=== PATIENT | female | born 1985 | race Two or more races ===

== ENCOUNTER 2024-09-25 12:57 | Inpatient (IN) | payer MEDICAID, OTHER ==
[~2024-09-25] VITALS: Ht 170.2 cm; Wt 79.6 kg
--- NOTE | 2024-09-25 13:23 | ED.PDOC ---
History of Present Illness HPI Comments This is a 38-year-old female without significant any past medical history and past surgical history of cholecystectomy, presented to the ED with a chief complaint of left pelvic pain and nausea since 5:00 p.m. yesterday prior to this visit. Patient states that abdominal pain started yesterday 5:00 p.m. which was diffuse to the right lower abdomen, 8/10, associated with nausea and chills. Her last menstrual period was 2 months ago and she is currently on Depo shot. Denies chest pain, shortness of breath, vomiting, dysuria, hematuria or any altered bowel habit. 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 Family History Family History: Reviewed,noncontributory to illness, Family hx of DM Social History Smoker: Non-Smoker Alcohol: Denies ETOH Use Drugs: Denies Drug Use Lives In: Home Constitutional: reports: chills; denies: diaphoresis, fatigue, fever, malaise, sweats, weakness, others EENTM: denies: blurred vision, double vision, ear bleeding, ear discharge, ear drainage, ear pain, ear ringing, eye pain, eye redness, hearing loss, mouth pain, mouth swelling, nasal discharge, nose bleeding, nose congestion, nose pain, photophobia, tearing, throat pain, throat swelling, voice changes, others Respiratory: denies: cough, hemoptysis, orthopnea, SOB at rest, shortness of breath, SOB with excertion, stridor, wheezing, others Cardiovascular: denies: chest pain, dizzy spells, diaphoresis, Dyspnea on exertion, edema, irregular heart beat, left arm pain, lightheadedness, palpitations, PND, syncope, others Gastrointestinal: reports: abdominal pain, nausea; denies: abdomen distended, blood streaked bowels, constipated, diarrhea, dysphagia, difficulty swallowing, hematemesis, melena, poor appetite, poor fluid intake, rectal bleeding, rectal pain, vomiting, others Genitourinary: denies: abnormal vagina bleeding, burning, dyspareunia, dysuria, flank pain, frequency, hematuria, incontinence, pain, , vagina discharge, urgency, others Neurological: denies: dizziness, fainting, headache, left sided numbness, left sided weakness, numbness, paresthesia, pre-existing deficit, right sided numbness, right sided weakness, seizure, speech problems, tingling, tremors, weakness, others Musculoskeletal: denies: back pain, gout, joint pain, joint swelling, muscle pain, muscle stiffness, neck pain, others Integumetry: denies: bruises, change in color, change in hair/nails, dryness, laceration, lesions, lumps, rash, wounds, others Allergic/Immunocompromised: denies: Difficulty Healing, Frequent Infections, Hives, Itching, others Hematologic/Lymphatic: denies: anemia, blood clots, easy bleeding, easy bruising, swollen glands, others Endocrine: denies: excessive hunger, excessive sweating, excessive thirst, excessive urination, flushing, intolerance to cold, intolerance to heat, unexplained weight gain, unexplained weight loss, others Psychiatric: denies: anxiety, bipolar disorder, depression, hopeless, panic disorder, schizophrenia, sleepless, suicidal, others Physical Exam General Appearance: Mild Distress HEENT: Normal ENT Inspection, Pharynx Normal, TMs Normal Neck: Full Range of Motion, Non-Tender, Normal, Normal Inspection Respiratory: Chest Non-Tender, Lungs Clear, No Accessory Muscle Use, No Respiratory Distress, Normal Breath Sounds Cardiovascular: No Edema, No JVD, No Murmur, No Gallop, Normal Peripheral Pulses, Regular Rate/Rhythm Breast Exam: Deferred Gastrointestinal: LLQ, No Organomegaly, No Pulsatile Mass, Normal Bowel Sounds, Tenderness Genitalia: Deferred Pelvic: Deferred Rectal: Deferred Extremities: No calf tenderness, Normal capillary refill, Normal inspection, Normal range of motion, Non-tender, No pedal edema Neurologic: NOT DONE Cerebellar Function: NOT DONE Reflexes: NOT DONE Skin: NOT DONE Peripheral Pulses: 2+ carotid (R), 2+ carotid (L), 2+ femoral (R), 2+ femoral (L), 2+ dorsalis pedis (R), 2+ dorsalis pedis (L), 2+ Radial (R), 2+ Radial (L), 2+ Brachial (R), 2+ Brachial (L) Lymphatic: NOT DONE Was a procedure done? Was a procedure done?: No Differential Dx Considerations may include: Ovarian cyst, UTI, cystitis, acute diverticulitis, colitis, PID X-Ray, Labs, Meds, VS Vital Signs Date Time Temp Pulse Resp B/P (MAP) Pulse Ox O2 Delivery O2 Flow Rate FiO2 09/25/24 14:51 91 18 113/76 (88) 99 09/25/24 12:58 97.4 96 15 132/89 100 97.4 Lab Test 09/25/24 13:26 09/25/24 13:21 Range/Units White Blood Count 10.4 4.4-10.8 10^3/uL Red Blood Count 4.94 4.0-5.20 10^6/uL Hemoglobin 11.9 L 12.2-16.2 g/dL Hematocrit 35.8 L 36.0-46.0 % Mean Corpuscular Volume 72.4 L 80.0-100.0 fL Mean Corpuscular Hemoglobin 24.0 L 28.0-32.0 pg Mean Corpuscular Hemoglobin Concent 33.2 32.0-36.0 g/dL Red Cell Distribution Width 15.5 H 11.8-14.3 % Platelet Count 288 140-450 10^3/uL Mean Platelet Volume 8.4 6.9-10.8 fL Neutrophils (%) (Auto) 81.1 H 37.0-80.0 % Lymphocytes (%) (Auto) 13.5 10.0-50.0 % Monocytes (%) (Auto) 4.9 0.0-12.0 % Eosinophils (%) (Auto) 0.3 0.0-7.0 % Basophils (%) (Auto) 0.2 0.0-2.0 % Neutrophils # (Auto) 8.4 1.6-8.6 10 ^3/uL Lymphocytes # (Auto) 1.4 0.4-5.4 10 ^3/uL Monocytes # (Auto) 0.5 0-1.3 10 ^3/uL Eosinophils # (Auto) 0 0-0.8 10 ^3/uL Basophils # (Auto) 0 0-0.2 10 ^3/uL Nucleated Red Blood Cells 0.0 % Sodium Level 137 136-145 mmol/L Potassium Level 3.9 3.5-5.1 mmol/L Chloride Level 103 98-107 mmol/L Carbon Dioxide Level 25 20-31 mmol/L Anion Gap 9 5-15 Blood Urea Nitrogen 7 L 9-23 mg/dL Creatinine 0.64 0.550-1.02 mg/dL Glomerular Filtration Rate Calc 115 >90 mL/min BUN/Creatinine Ratio 10.9 10.0-20.0 Serum Glucose 295 H 74-106 mg/dL Lactic Acid Level 1.3 0.4-2.0 mmol/L Calcium Level 9.1 8.7-10.4 mg/dL Magnesium Level 1.9 1.6-2.6 mg/dL Lipase 32 12-53 U/L Beta HCG, Quantitative 0.8 L 1.5-4.2 mIU/mL Urine Color Colorless Yellow Urine Clarity Clear Clear Urine pH 6.5 5.0-9.0 Urine Specific [place] 1.009 1.001-1.035 Urine Protein Negative Negative Urine Ketones 1+ H Negative Urine Blood 3+ H Negative /uL Urine Nitrite Negative Negative Urine Bilirubin Negative Negative Urine Urobilinogen Normal Negative mg/dL Urine Leukocyte Esterase Trace Negative /uL Urine RBC 65 0 - 4 /hpf Urine Microscopic WBC 6 H 0-5 /HPF Urine Squamous Epithelial Cells Few <5 /hpf Urine Bacteria Few H None Seen /hpf Urine Glucose 4+ H Normal mg/dL This is a 38 years old female with no significant past medical history presented to the ED with severe left pelvic pain and on examination revealed tenderness in the left pelvic region. CT of the abdomen pelvis with IV contrast demonstrated multiple left ovarian cyst with hydrosalpinx and ultrasound of the pelvis demonstrated enlarged uterus, 2.2 multiplied 2.7 cm heterogeneous left ovarian mass. Consulted on-call OBGYN Dr. Fischer. X-Ray, Labs, Meds, VS Comment INDICATION: Severe left pelvic pain EXAM DATE: 09/25/2024 02:20 PM COMPARISON: None RADIATION DOSE: CTDIvol: 11 mGy, DLP: 667 mGy*cm PROCEDURE: Helical CT images were obtained of the abdomen and pelvis with IV contrast Sagittal and coronal reconstructions are provided. ORAL CONTRAST: None. ADDITIONAL IMAGES / REFORMATS: None All CT scans at this medical facility are performed using dose modulation techniques as appropriate to a performed exam including the following: Automated exposure control was utilized; adjustment of the MA and/or KV according to patient size; and use of iterative reconstruction technique. FINDINGS: LUNG BASE: Normal. LIVER: Normal. GALLBLADDER AND BILIARY TREE: Hilda clips. No intra- or extrahepatic biliary ductal dilation. PANCREAS: Normal. SPLEEN: Normal. BOWEL: Normal. Normal appendix. ADRENALS: Normal. KIDNEYS AND URETER: Normal. BLADDER: Normal. REPRODUCTIVE ORGANS: Moderate size tubular structure in the left adnexa could be multiple ovarian cysts or a hydrosalpinx. Consider pelvis US for further evaluation. LYMPH NODES:No lymphadenopathy. PERITONEUM: No ascites or free air. No other fluid collection. VESSELS: Scattered atherosclerotic calcifications are noted. RETROPERITONEUM: Normal. ABDOMINAL WALL: Normal. BONES: Scattered osseous degenerative changes are noted. IMPRESSION: Moderate size tubular structure in the left adnexa could be multiple ovarian cysts or a hydrosalpinx. Consider pelvis US for further evaluation. INDICATION: ovarian cyst TECHNIQUE: Multiple real-time grayscale transabdominal sonographic images along with color and duplex Doppler of the uterus and ovaries were obtained. COMPARISON: None FINDINGS: The uterus measures 8.9 x 6.1 x 6.3 cm. The endometrial stripe measures 0.11 cm. The right ovary measures 2.6 x 2.6 x 2 cm. The left ovary measures 6.2 x 4.5 x 5.6 cm. There is a 2.8 x 2.5 x 2.7 cm mixed mass in the left ovary. Subsequent color and duplex Doppler interrogation of the ovaries demonstrated symmetric vascular flow to both ovaries, though this does not exclude the possibility of torsion due to the dual blood supply. IMPRESSION: 1. 8.9 x 6.3 cm uterus 2. Endometrium measures 11 mm 3. Enlarged left ovary with 2.8 x 2.7 cm heterogeneous mass. Doppler signal is normal from the left ovary. Images Reviewed?: Images reviewed and evaluated by me Time of 1ST Reevaluation: 17:00 Reevaluation 1ST: Improved Patient Education/Counseling: Diagnosis, Treatment Family Education/Counseling: No Family Present SEPSIS Sepsis Screen Date sepsis recognized/suspect: Sep 25, 2024 Time Sepsis recognized/suspect: 9 Recent Procedure: No On Antibiotic Therapy: No Respiratory Rate >20: No Heart Rate >90: Yes Temp<36 C (96.8 F) or >38.3 C: No SBP <90 or MAP <65 mmHG: No New Acute Mental Status Change: No Is the patient on CPAP, BIPAP,: No Physician Orders Ct Ab Pel With Iv Con Only (09/25/24 13:11) Pelvic (09/25/24 15:07) Transvaginal Us Non Ob (09/25/24 ) * 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 (09/25/24 17:01) Vital Signs Date Time Temp Pulse Resp B/P (MAP) Pulse Ox O2 Delivery O2 Flow Rate FiO2 09/25/24 14:51 91 18 113/76 (88) 99 09/25/24 12:58 97.4 96 15 132/89 100 97.4 Laboratory Tests Test 09/25/24 13:26 Lactic Acid Level 1.3 mmol/L (0.4-2.0) White Blood Count 10.4 10^3/uL (4.4-10.8) Departure 1 Departure Time of Disposition: 17:11 Impression: Primary Impression: Left ovarian cyst Additional Impression: Hydrosalpinx Disposition: 30 STILL A PATIENT Admit to: Med Surg Condition: Guarded Critical Care Note Critical Care Time?: No Stability Stability form required: ANGELICA Gray RESIDENT Sep 25, 2024 13:23
[2024-09-25 13:53] LABS: Hematocrit 35.8 % (36.0-46.0); Hemoglobin 11.9 g/dL (12.2-16.2); Mean Corpuscular Hemoglobin 24.0 pg (28.0-32.0); Mean Corpuscular Volume 72.4 fL (80.0-100.0); Nucleated Red Blood Cells % 0.0 %
[2024-09-25 14:03] LABS: Chloride 103 mmol/L (98-107); Potassium 3.9 mmol/L (3.5-5.1); Sodium 137 mmol/L (136-145)
[2024-09-25 14:04] LABS: Anion Gap 9 (5-15); Calcium 9.1 mg/dL (8.7-10.4); Carbon Dioxide 25 mmol/L (20-31)
[2024-09-25 14:09] LABS: BUN/Creatinine Ratio 10.9 (10.0-20.0); Lipase 32 U/L (12-53)
[2024-09-25 14:10] LABS: Blood Urea Nitrogen 7 mg/dL (9-23); Glucose 295 mg/dL (74-106); Magnesium 1.9 mg/dL (1.6-2.6)
[2024-09-25] MEDS: IOHEXOL 300 MG/ML 100ML BOTTLE IJ ONE (14:27)
--- NOTE | 2024-09-25 14:55 | DVH ---
CT CT AB PEL WITH IV CON ONLY INDICATION: Severe left pelvic pain EXAM DATE: 09/25/2024 02:20 PM COMPARISON: None RADIATION DOSE: CTDIvol: 11 mGy, DLP: 667 mGy*cm PROCEDURE: Helical CT images were obtained of the abdomen and pelvis with IV contrast Sagittal and co tres reconstructions are provided. ORAL CONTRAST: None. ADDITIONAL IMAGES / REFORMATS: None All CT s cans at this medical facility are performed using dose modulation techniques as appropriate to a perf ormed exam including the following: Automated exposure control was utilized; adjustment of the MA and /or KV according to patient size; and use of iterative reconstruction technique. FINDINGS: LUNG BASE: Normal. LIVER: Normal. GALLBLADDER AND BILIARY TREE: Hilda clips. No intra- or extrahepatic biliary ductal dilation. PANCREAS: Normal. SPLEEN: Normal. BOWEL: Normal. Normal appendix. ADRENALS: Normal. KIDNEYS AND URETER: Normal. BLADDER: Normal. REPRODUCTIVE ORGANS: Moderate size tubular structure in the left adnexa could be multiple ovarian cys ts or a hydrosalpinx. Consider pelvis US for further evaluation. LYMPH NODES:No lymphadenopathy. PERITONEUM: No ascites or free air. No other fluid collection. VESSELS: Scattered atherosclerotic calcifications are noted. RETROPERITONEUM: Normal. ABDOMINAL WALL: Normal. BONES: Scattered osseous degenerative changes are noted. IMPRESSION: Moderate size tubular structure in the left adnexa could be multiple ovarian cysts or a hydrosalpinx. Consider pelvis US for further evaluation.
[2024-09-25 14:58] LABS: Urine Protein, UAD Negative (Negative)
--- NOTE | 2024-09-25 16:44 | DVH ---
INDICATION: ovarian cyst TECHNIQUE: Multiple real-time grayscale transabdominal sonographic images along with color and duplex Doppler of the uterus and ovaries were obtained. COMPARISON: None FINDINGS: The uterus measures 8.9 x 6.1 x 6.3 cm. The endometrial stripe measures 0.11 cm. The right ovary measures 2.6 x 2.6 x 2 cm. The left ovary measures 6.2 x 4.5 x 5.6 cm. There is a 2.8 x 2.5 x 2.7 cm mixed mass in the left ovar y. Subsequent color and duplex Doppler interrogation of the ovaries demonstrated symmetric vascular flow to both ovaries, though this does not exclude the possibility of torsion due to the dual blood suppl y. IMPRESSION: 1. 8.9 x 6.3 cm uterus 2. Endometrium measures 11 mm 3. Enlarged left ovary with 2.8 x 2.7 cm heterogeneous mass. Doppler signal is normal from the left ovary.
[2024-09-25] MEDS: MORPHINE SULFATE INJ 2 MG/ml SYRG IV ONE (17:19)
[2024-09-25] MEDS: cefTRIAXone 1GM/50ML D5W 50 ML IV ONE (18:13)
[2024-09-25] MEDS ORDERED: ONDANSETRON HCL 4 MG/2 ML VIAL IV PRN (19:45)
[2024-09-25] MEDS ORDERED: TEMAZEPAM 15 MG CAP PO PRN (19:45)
[2024-09-25] MEDS ORDERED: HYDROcodone-ACET 5/325MG TAB PO PRN (19:45)
--- NOTE | 2024-09-25 22:03 | DVHHP2 ---
History of Present Illness Reason for Visit: Abdominal pain History of Present Illness 38-year-old female presents for evaluation of abdominal pain. Patient endorses a two day history of left pelvic/groin pain. Reports some nausea and chills. No other acute complaints reported. Past Medical History Denies Past Surgical History Cholecystectomy and Family History Noncontributory Smoke: No ALCOHOL: none Drugs: None Lives: with Family Review of Systems Review of Systems Review of systems are currently negative otherwise addressed in HPI. Allergies: Coded Allergies: NO KNOWN ALLERGIES (Unverified , 09/25/24) Medications Current Medications Medications Dose Ordered Sig/Yessi Route Start Time Stop Time Status Last Admin Dose Admin Acetaminophen/ Hydrocodone Bitart 1 tab Q4HP PRN PO 09/25/24 19:45 Temazepam 15 mg QHSP PRN PO 09/25/24 19:45 Ondansetron HCl 4 mg Q4HP PRN IV 09/25/24 19:45 Acetaminophen 650 mg Q6HP PRN PO 09/25/24 19:45 Exam Vital Signs Vital Signs Date Time Temp Pulse Resp B/P (MAP) Pulse Ox O2 Delivery O2 Flow Rate FiO2 09/25/24 17:49 82 14 118/82 09/25/24 17:25 Room Air* 0 21 09/25/24 17:25 98.0 99 98.0 Exam Gen: 38-year-old female in mild distress. Skin: Warm, dry, normal color and texture, no rash. HEENT: Normocephalic atraumatic, mucous membranes moist and pink. Neck: Cervical and supraclavicular nodes normal without enlargement, trachea is midline, thyroid gland is normal without masses. Pulmonary: Clear to auscultation and percussion bilaterally. Cardiac: Regular rate and rhythm. No murmur Abdomen: Soft, nontender, nondistended, bowel sounds present all 4 quadrants, no guarding, no rigidity, no organomegaly. Extremities: No cyanosis, clubbing, no edema Neuro: Cranial nerves II through XII grossly intact, normal affect and speech, no focal motor deficits. Labs/Xrays ORDERING PHYSICIAN: ANGELICA GALLARDO RESIDENT PROCEDURE(s): ABPLIV - CT AB PEL WITH IV CON ONLY REASON: Severe left pelvic pain ORDER NUMBER(s): [id number], ACCESSION NUMBER(s): [id number] CT CT AB PEL WITH IV CON ONLY INDICATION: Severe left pelvic pain EXAM DATE: 09/25/2024 02:20 PM COMPARISON: None RADIATION DOSE: CTDIvol: 11 mGy, DLP: 667 mGy*cm PROCEDURE: Helical CT images were obtained of the abdomen and pelvis with IV contrast Sagittal and coronal reconstructions are provided. ORAL CONTRAST: None. ADDITIONAL IMAGES / REFORMATS: None All CT scans at this medical facility are performed using dose modulation techniques as appropriate to a performed exam including the following: Automated exposure control was utilized; adjustment of the MA and/or KV according to patient size; and use of iterative reconstruction technique. FINDINGS: LUNG BASE: Normal. LIVER: Normal. GALLBLADDER AND BILIARY TREE: Hilda clips. No intra- or extrahepatic biliary ductal dilation. PANCREAS: Normal. SPLEEN: Normal. BOWEL: Normal. Normal appendix. ADRENALS: Normal. KIDNEYS AND URETER: Normal. BLADDER: Normal. REPRODUCTIVE ORGANS: Moderate size tubular structure in the left adnexa could be multiple ovarian cysts or a hydrosalpinx. Consider pelvis US for further evaluation. LYMPH NODES:No lymphadenopathy. PERITONEUM: No ascites or free air. No other fluid collection. VESSELS: Scattered atherosclerotic calcifications are noted. RETROPERITONEUM: Normal. ABDOMINAL WALL: Normal. BONES: Scattered osseous degenerative changes are noted. IMPRESSION: Moderate size tubular structure in the left adnexa could be multiple ovarian cysts or a hydrosalpinx. Consider pelvis US for further evaluation. ATED BY: GETACHEW BORGES MD ORDERING PHYSICIAN: ANGELICA GALLARDO RESIDENT PROCEDURE(s): PELUS - PELVIC REASON: ovarian cyst ORDER NUMBER(s): [id number], ACCESSION NUMBER(s): [id number] INDICATION: ovarian cyst TECHNIQUE: Multiple real-time grayscale transabdominal sonographic images along with color and duplex Doppler of the uterus and ovaries were obtained. COMPARISON: None FINDINGS: The uterus measures 8.9 x 6.1 x 6.3 cm. The endometrial stripe measures 0.11 cm. The right ovary measures 2.6 x 2.6 x 2 cm. The left ovary measures 6.2 x 4.5 x 5.6 cm. There is a 2.8 x 2.5 x 2.7 cm mixed mass in the left ovary. Subsequent color and duplex Doppler interrogation of the ovaries demonstrated symmetric vascular flow to both ovaries, though this does not exclude the possibility of torsion due to the dual blood supply. IMPRESSION: 1. 8.9 x 6.3 cm uterus 2. Endometrium measures 11 mm 3. Enlarged left ovary with 2.8 x 2.7 cm heterogeneous mass. Doppler signal is normal from the left ovary. Labs Test 09/25/24 13:26 09/25/24 13:21 Range/Units White Blood Count 10.4 4.4-10.8 10^3/uL Red Blood Count 4.94 4.0-5.20 10^6/uL Hemoglobin 11.9 L 12.2-16.2 g/dL Hematocrit 35.8 L 36.0-46.0 % Mean Corpuscular Volume 72.4 L 80.0-100.0 fL Mean Corpuscular Hemoglobin 24.0 L 28.0-32.0 pg Mean Corpuscular Hemoglobin Concent 33.2 32.0-36.0 g/dL Red Cell Distribution Width 15.5 H 11.8-14.3 % Platelet Count 288 140-450 10^3/uL Mean Platelet Volume 8.4 6.9-10.8 fL Neutrophils (%) (Auto) 81.1 H 37.0-80.0 % Lymphocytes (%) (Auto) 13.5 10.0-50.0 % Monocytes (%) (Auto) 4.9 0.0-12.0 % Eosinophils (%) (Auto) 0.3 0.0-7.0 % Basophils (%) (Auto) 0.2 0.0-2.0 % Neutrophils # (Auto) 8.4 1.6-8.6 10 ^3/uL Lymphocytes # (Auto) 1.4 0.4-5.4 10 ^3/uL Monocytes # (Auto) 0.5 0-1.3 10 ^3/uL Eosinophils # (Auto) 0 0-0.8 10 ^3/uL Basophils # (Auto) 0 0-0.2 10 ^3/uL Nucleated Red Blood Cells 0.0 % Sodium Level 137 136-145 mmol/L Potassium Level 3.9 3.5-5.1 mmol/L Chloride Level 103 98-107 mmol/L Carbon Dioxide Level 25 20-31 mmol/L Anion Gap 9 5-15 Blood Urea Nitrogen 7 L 9-23 mg/dL Creatinine 0.64 0.550-1.02 mg/dL Glomerular Filtration Rate Calc 115 >90 mL/min BUN/Creatinine Ratio 10.9 10.0-20.0 Serum Glucose 295 H 74-106 mg/dL Lactic Acid Level 1.3 0.4-2.0 mmol/L Calcium Level 9.1 8.7-10.4 mg/dL Magnesium Level 1.9 1.6-2.6 mg/dL Lipase 32 12-53 U/L Beta HCG, Quantitative 0.8 L 1.5-4.2 mIU/mL Urine Color Colorless Yellow Urine Clarity Clear Clear Urine pH 6.5 5.0-9.0 Urine Specific [place] 1.009 1.001-1.035 Urine Protein Negative Negative Urine Ketones 1+ H Negative Urine Blood 3+ H Negative /uL Urine Nitrite Negative Negative Urine Bilirubin Negative Negative Urine Urobilinogen Normal Negative mg/dL Urine Leukocyte Esterase Trace Negative /uL Urine RBC 65 0 - 4 /hpf Urine Microscopic WBC 6 H 0-5 /HPF Urine Squamous Epithelial Cells Few <5 /hpf Urine Bacteria Few H None Seen /hpf Urine Glucose 4+ H Normal mg/dL SEPSIS Sepsis Screen Date sepsis recognized/suspect: Sep 25, 2024 Time Sepsis recognized/suspect: 1259 Recent Procedure: No On Antibiotic Therapy: No Respiratory Rate >20: No Heart Rate >90: Yes Temp<36 C (96.8 F) or >38.3 C: No SBP <90 or MAP <65 mmHG: No New Acute Mental Status Change: No Is the patient on CPAP, BIPAP,: No Physician Orders Pelvic (09/25/24 15:07) Transvaginal Us Non Ob (09/25/24 ) * [facility] Consultation (09/25/24 17:01) Regular Diet (09/26/24 Breakfast) Basic Metabolic Panel (09/26/24 04:00) Admit (09/25/24 19:31) Hydrocodone-Acet 5/325mg Tab ([place] 32 (09/25/24 19:45) Temazepam (Restoril) (09/25/24 19:45) Ondansetron Hcl (Zofran) (09/25/24 19:45) Condition: Stable (09/25/24 19:31) Acetaminophen Tablet (Tylenol Tablet) (09/25/24 19:45) Bedrest With Bathroom Privileg (09/25/24 19:31) Vital Signs Date Time Temp Pulse Resp B/P (MAP) Pulse Ox O2 Delivery O2 Flow Rate FiO2 09/25/24 17:49 82 14 118/82 09/25/24 17:25 Room Air* 0 21 09/25/24 17:25 98.0 82 14 118/82 (94) 99 98.0 09/25/24 17:19 82 14 118/82 09/25/24 14:51 91 18 113/76 (88) 99 Laboratory Tests Test 09/25/24 13:26 Lactic Acid Level 1.3 mmol/L (0.4-2.0) White Blood Count 10.4 10^3/uL (4.4-10.8) Medications Medications Dose Ordered Sig/Yessi Route Start Time Stop Time Status Last Admin Dose Admin Ceftriaxone Sodium 50 ml @ 100 mls/hr ONCE ONCE IV 09/25/24 17:15 09/25/24 17:44 DC 09/25/24 18:13 100 MLS/HR Morphine Sulfate 2 mg ONCE ONCE IV 09/25/24 13:15 09/25/24 13:16 DC 09/25/24 17:19 2 MG Assessment/Plan Assessment/Plan Assessment Left ovarian mass Plan Admit the patient to [facility] to the hospitalist Pain management OBGYN consult pending Continue treatment per orders. Plan discussed with: Patient My Orders Orders - PHILIP GALARZA AGACNP Procedure Category Date Status Time Regular Diet DIET 09/26/24 Transmitted Breakfast Basic Metabolic Panel LAB 09/26/24 Verified 04:00 Admit ADMIT 09/25/24 Transmitted 19:31 Hydrocodone-Acet PHA 09/25/24 In Process 5/325mg Tab ([place] 19:45 Temazepam (Restoril) PHA 09/25/24 In Process 19:45 Ondansetron Hcl PHA 09/25/24 In Process (Zofran) 19:45 Condition: Stable [place] 09/25/24 In Process 19:31 Acetaminophen Tablet PHA 09/25/24 In Process (Tylenol Tablet) 19:45 Bedrest With Bathroom [place] 09/25/24 In Process Privileg 19:31 Date of Service: Sep 25, 2024 Billing Provider: PHILIP GALARZA Common Visit Codes: [id number] INP/OBS CARE (MOD) PHILIP GALARZA Sep 25, 2024 22:03
[2024-09-25 23:43] VITALS: BP 123/82; PULSE 94; RESP 18; TEMP 98.5; O2SAT 97
[2024-09-26] VITALS (7 sets, daily range): BP systolic 121–139; BP diastolic 73–90; PULSE 77–87; RESP 16–20; TEMP 97.7–99.2; O2SAT 93–99
[2024-09-26 07:21] LABS: Chloride 106 mmol/L (98-107); Potassium 3.9 mmol/L (3.5-5.1); Sodium 138 mmol/L (136-145)
[2024-09-26 07:22] LABS: Anion Gap 9 (5-15); Carbon Dioxide 23 mmol/L (20-31)
[2024-09-26 07:27] LABS: BUN/Creatinine Ratio 9.7 (10.0-20.0); Blood Urea Nitrogen 7 mg/dL (9-23); Calcium 8.4 mg/dL (8.7-10.4); Glucose 273 mg/dL (74-106)
[2024-09-26] MEDS ORDERED: DEXTROSE (50%) 50ML SYRG IV PRN (12:00)
[2024-09-26] MEDS ORDERED: KETOROLAC TROMETH 30 MG/ML 1ML VIAL IV PRN (12:00)
--- NOTE | 2024-09-26 12:01 | DVHPN2 ---
Progress Note Date Seen: Sep 26, 2024 Medical Necessity Reason Pt with a Central, PICC or Fol: No Subjective Patient reports: No new complaints Review of Systems: HEENT:Normal, CVS:Normal, RESPIRATORY:Normal, GI:Normal, :Normal, MSK:Normal, NEURO:Normal Objective vital signs Vital Sign Date Time Temp Pulse Resp B/P (MAP) Pulse Ox O2 Delivery O2 Flow Rate FiO2 09/26/24 09:00 98.3 77 17 129/88 (102) 93 98.3 09/26/24 08:00 Room Air* 0 21 Total Intake and Output 09/25/24 09/25/24 09/26/24 15:00 23:00 07:00 Intake Total 50 ml 1000 ml Balance 50 ml 1000 ml medications Current Medications Medications Dose Ordered Sig/Yessi Route Start Time Stop Time Status Last Admin Dose Admin Acetaminophen/ Hydrocodone Bitart 1 tab Q4HP PRN PO 09/25/24 19:45 Temazepam 15 mg QHSP PRN PO 09/25/24 19:45 Ondansetron HCl 4 mg Q4HP PRN IV 09/25/24 19:45 Acetaminophen 650 mg Q6HP PRN PO 09/25/24 19:45 Examination: GENERAL:Normal, HEENT:Normal, NECK:Normal, LUNGS:Normal, CVS:Normal, ABDOMEN:Normal, MSK:Normal, SKIN:Normal, NEURO:Normal, :Normal laboratory and microbiology Laboratory Tests 09/26/24 06:12 09/25/24 13:26 Test 09/26/24 06:12 Range/Units Serum Glucose 273 H 74-106 mg/dL Problem List/Assessment/Plan Problem List/Assessment/Plan #1 abd pain with left ovarian cysts ?rupture: pain meds, key operator consult #2 ?dm: A1c, ssi Plan discussed with: Patient Date of Service: Sep 26, 2024 Billing Provider: PHILIP NULL MD Common Visit Codes: [id number] INP/OBS CARE(HIGH) PHILIP NULL MD Sep 26, 2024 12:01
--- NOTE | 2024-09-26 12:41 | DVHINCON2 ---
Date of service: Sep 26, 2024 Referring Physician hospitalist Reason for Consultation pelvic pain,ovarian mass History of Present Illness pt is admitted for acute abd pain,left sided pain currently not severe . pt denies having dysmenorrhea or dyspaurina.[facility] she has some spotting with it started 2 days ago.ct reveals questionable hydrosalpinx ,pelvic sono shows 2.8cm maa of left ovary. uterus size is nl . Past Medical History na Past Surgical History cs x3,cholecystectomy Family History na Social History 3 cs,pap 06/16 nl Patient Family History: Diabetes mellitus G8 MOTHER Ischemic heart disease G8 FATHER Allergies: Coded Allergies: NO KNOWN ALLERGIES (Unverified , 09/25/24) Current Medications Current Medications Medications (Trade) Dose Ordered Sig/Yessi Route PRN Reason Start Time Stop Time Status Last Admin Acetaminophen/ Hydrocodone Bitart (Arnett 5/325MG Tab) 1 tab Q4HP PRN PO MODERATE PAIN (4-6 PAIN SCALE) 09/25/24 19:45 Temazepam (Restoril) 15 mg QHSP PRN PO FOR INSOMNIA 09/25/24 19:45 Ondansetron HCl (Zofran) 4 mg Q4HP PRN IV NAUSEA / VOMITING 09/25/24 19:45 Acetaminophen (Tylenol Tablet) 650 mg Q6HP PRN PO PAIN SCALE 1-3 OR TEMP>100.4 09/25/24 19:45 Diagnostic Test (Pha) (Accu-Chek Comfort Curve T) 1 strip ACHS 09/26/24 17:00 UNV Insulin Human Regular (InsuLIN R) ACHS SC 09/26/24 17:00 UNV Dextrose 50 ml UD PRN IV Blood Sugar LESS THAN 60 09/26/24 12:00 UNV Ketorolac Tromethamine (Toradol Injection) 15 mg Q6HPRN PRN IV SEVERE PAIN (7-10 PAIN SCALE) 09/26/24 12:00 10/01/24 11:59 UNV Review of Systems Constitutional: no fever, chill, weight loss HEENT: no eye pain, no hearing loss, no oral lesion, no scleral icterus Heart: no chest pain, no chest pressure Lung: no cough, no dyspnea with exertion Abdomen: lower abd pain : no pain with urination, normal appearing urine.left lower quad pain Musculoskeletal: no joint pain, no muscle pain Neurological: no seizure, no loss of sensation, no weakness in extremities Pysch: no depression, no anxiety Derm: no rash, no jaundice Vital Signs Vital Signs Date Time Temp Pulse Resp B/P (MAP) Pulse Ox O2 Delivery O2 Flow Rate FiO2 09/26/24 09:00 98.3 77 17 129/88 (102) 93 98.3 09/26/24 08:00 Room Air* 0 21 Physical Exam alert and orinented ,in no acute distress HEENT:nl NECK:nl CARDIAC:rrr PULMONARY:cta ABDOMEN:soft ,no rigidity,no rebound pelvic -ext genitalia nl,cx nl ,no cervical motion tenderness,uterus nt and nl size,left adenxa tenderness noted no palpable mass noted Labs/Diagnostic Data Labs Test 09/26/24 06:12 09/25/24 13:26 09/25/24 13:21 Range/Units Sodium Level 138 136-145 mmol/L Potassium Level 3.9 3.5-5.1 mmol/L Chloride Level 106 98-107 mmol/L Carbon Dioxide Level 23 20-31 mmol/L Anion Gap 9 5-15 Blood Urea Nitrogen 7 L 9-23 mg/dL Creatinine 0.72 0.550-1.02 mg/dL Glomerular Filtration Rate Calc 109 >90 mL/min BUN/Creatinine Ratio 9.7 L 10.0-20.0 Serum Glucose 273 H 74-106 mg/dL Calcium Level 8.4 L 8.7-10.4 mg/dL White Blood Count 10.4 4.4-10.8 10^3/uL Red Blood Count 4.94 4.0-5.20 10^6/uL Hemoglobin 11.9 L 12.2-16.2 g/dL Hematocrit 35.8 L 36.0-46.0 % Mean Corpuscular Volume 72.4 L 80.0-100.0 fL Mean Corpuscular Hemoglobin 24.0 L 28.0-32.0 pg Mean Corpuscular Hemoglobin Concent 33.2 32.0-36.0 g/dL Red Cell Distribution Width 15.5 H 11.8-14.3 % Platelet Count 288 140-450 10^3/uL Mean Platelet Volume 8.4 6.9-10.8 fL Neutrophils (%) (Auto) 81.1 H 37.0-80.0 % Lymphocytes (%) (Auto) 13.5 10.0-50.0 % Monocytes (%) (Auto) 4.9 0.0-12.0 % Eosinophils (%) (Auto) 0.3 0.0-7.0 % Basophils (%) (Auto) 0.2 0.0-2.0 % Neutrophils # (Auto) 8.4 1.6-8.6 10 ^3/uL Lymphocytes # (Auto) 1.4 0.4-5.4 10 ^3/uL Monocytes # (Auto) 0.5 0-1.3 10 ^3/uL Eosinophils # (Auto) 0 0-0.8 10 ^3/uL Basophils # (Auto) 0 0-0.2 10 ^3/uL Nucleated Red Blood Cells 0.0 % Lactic Acid Level 1.3 0.4-2.0 mmol/L Magnesium Level 1.9 1.6-2.6 mg/dL Lipase 32 12-53 U/L Beta HCG, Quantitative 0.8 L 1.5-4.2 mIU/mL Urine Color Colorless Yellow Urine Clarity Clear Clear Urine pH 6.5 5.0-9.0 Urine Specific [place] 1.009 1.001-1.035 Urine Protein Negative Negative Urine Ketones 1+ H Negative Urine Blood 3+ H Negative /uL Urine Nitrite Negative Negative Urine Bilirubin Negative Negative Urine Urobilinogen Normal Negative mg/dL Urine Leukocyte Esterase Trace Negative /uL Urine RBC 65 0 - 4 /hpf Urine Microscopic WBC 6 H 0-5 /HPF Urine Squamous Epithelial Cells Few <5 /hpf Urine Bacteria Few H None Seen /hpf Urine Glucose 4+ H Normal mg/dL Primary Diagnosis abd pain/pelvic pain left ovarian cyst possible corpus luteum cyst Plan supportive care ,hydration and pain management repeat us in 6-8 weeks fu 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
[2024-09-26] MEDS: ACETAMINOPHEN 325 MG TAB PO PRN (14:38)
[2024-09-26] MEDS: ACCU-CHEK COMFORT CURVE STRIP VI SCH (17:00)
[2024-09-26] MEDS: InsuLIN REG 1unit/0.01ml Soln (100units/ml) SC SCH (17:45)
[2024-09-27 01:00] VITALS: BP 113/70; PULSE 87; RESP 18; TEMP 97.8; O2SAT 99
[2024-09-27 05:00] VITALS: BP 110/75; PULSE 80; RESP 16; TEMP 97.8; O2SAT 94
[2024-09-27 07:45] VITALS: PULSE 80; RESP 17; O2SAT 99
[2024-09-27 07:45] LABS: Hematocrit 35.4 % (36.0-46.0); Hemoglobin 11.6 g/dL (12.2-16.2); Mean Corpuscular Hemoglobin 23.9 pg (28.0-32.0); Mean Corpuscular Volume 72.8 fL (80.0-100.0); Nucleated Red Blood Cells % 0.1 %
--- NOTE | 2024-09-27 08:07 | DVHPN2 ---
Chief Complaints Patient reports: No new complaints, Feels better, Other (pt is pain free) Objective Vitals Vital Signs Date Time Temp Pulse Resp B/P (MAP) Pulse Ox O2 Delivery O2 Flow Rate FiO2 09/27/24 07:45 80 17 99 Room Air* 0 21 09/27/24 05:00 97.8 110/75 (87) 97.8 Medications Current Medications Medications (Trade) Dose Ordered Sig/Yessi Route PRN Reason Start Time Stop Time Status Last Admin Dextrose 50 ml UD PRN IV Blood Sugar LESS THAN 60 09/26/24 12:00 Diagnostic Test (Pha) (Accu-Chek Comfort Curve T) 1 strip ACHS 09/26/24 17:00 09/27/24 06:30 Insulin Human Regular (InsuLIN R) ACHS SC 09/26/24 17:00 09/27/24 06:31 Ketorolac Tromethamine (Toradol Injection) 15 mg Q6HPRN PRN IV SEVERE PAIN (7-10 PAIN SCALE) 09/26/24 12:00 10/01/24 11:59 Abdominal: Soft, Non tender Studies Laboratory Tests 09/27/24 06:38 Test 09/27/24 06:38 Range/Units Serum Glucose Pending Ass/Plan Assessment pelvic pain resoved l Plan pt was given instruction to fu out pt with our car seat coverer office for pap and fu sono will sign off thank you for your request of our participation Visit Coding OBGYN Date of Service: Sep 27, 2024 Billing Provider: LUCINA ESPINO DO DIRECTOR [employer] Common Visit Codes: [id number] INP/OBS CARE(HIGH) LUCINA ESPINO DO Sep 27, 2024 08:07
[2024-09-27 08:08] LABS: Chloride 101 mmol/L (98-107); Potassium 4.0 mmol/L (3.5-5.1); Sodium 137 mmol/L (136-145)
[2024-09-27 08:09] LABS: Anion Gap 9 (5-15); Calcium 9.3 mg/dL (8.7-10.4); Carbon Dioxide 27 mmol/L (20-31)
[2024-09-27 08:14] LABS: BUN/Creatinine Ratio 10.5 (10.0-20.0); Blood Urea Nitrogen 8 mg/dL (9-23); Glucose 265 mg/dL (74-106)
--- NOTE | 2024-09-27 11:11 | DVHDS2 ---
Discharge Summary Date of Admission Sep 25, 2024 at 19:31 Date of Discharge: Sep 27, 2024 Labs/Diagnostic Data: Laboratory Results Test 09/27/24 06:38 09/27/24 06:27 09/26/24 06:12 09/25/24 13:26 White Blood Count 7.6 10^3/uL (4.4-10.8) Red Blood Count 4.86 10^6/uL (4.0-5.20) Hemoglobin 11.6 g/dL (12.2-16.2) Hematocrit 35.4 % (36.0-46.0) Mean Corpuscular Volume 72.8 fL (80.0-100.0) Mean Corpuscular Hemoglobin 23.9 pg (28.0-32.0) Mean Corpuscular Hemoglobin Concent 32.9 g/dL (32.0-36.0) Red Cell Distribution Width 15.6 % (11.8-14.3) Platelet Count 282 10^3/uL (140-450) Mean Platelet Volume 8.6 fL (6.9-10.8) Neutrophils (%) (Auto) 70.1 % (37.0-80.0) Lymphocytes (%) (Auto) 22.6 % (10.0-50.0) Monocytes (%) (Auto) 6.2 % (0.0-12.0) Eosinophils (%) (Auto) 0.8 % (0.0-7.0) Basophils (%) (Auto) 0.3 % (0.0-2.0) Neutrophils # (Auto) 5.4 10 ^3/uL (1.6-8.6) Lymphocytes # (Auto) 1.7 10 ^3/uL (0.4-5.4) Monocytes # (Auto) 0.5 10 ^3/uL (0-1.3) Eosinophils # (Auto) 0.1 10 ^3/uL (0-0.8) Basophils # (Auto) 0 10 ^3/uL (0-0.2) Nucleated Red Blood Cells 0.1 % Sodium Level 137 mmol/L (136-145) Potassium Level 4.0 mmol/L (3.5-5.1) Chloride Level 101 mmol/L (98-107) Carbon Dioxide Level 27 mmol/L (20-31) Anion Gap 9 (5-15) Blood Urea Nitrogen 8 mg/dL (9-23) Creatinine 0.76 mg/dL (0.550-1.02) Glomerular Filtration Rate Calc 102 mL/min (>90) BUN/Creatinine Ratio 10.5 (10.0-20.0) Serum Glucose 265 mg/dL (74-106) Calcium Level 9.3 mg/dL (8.7-10.4) POC Glucose 245 mg/dl (70-106) Hemoglobin A1c 10.8 % A1C (<5.7) Lactic Acid Level 1.3 mmol/L (0.4-2.0) Magnesium Level 1.9 mg/dL (1.6-2.6) Lipase 32 U/L (12-53) Beta HCG, Quantitative 0.8 mIU/mL (1.5-4.2) Test 09/25/24 13:21 Urine Color Colorless (Yellow) Urine Clarity Clear (Clear) Urine pH 6.5 (5.0-9.0) Urine Specific [place] 1.009 (1.001-1.035) Urine Protein Negative (Negative) Urine Ketones 1+ (Negative) Urine Blood 3+ /uL (Negative) Urine Nitrite Negative (Negative) Urine Bilirubin Negative (Negative) Urine Urobilinogen Normal mg/dL (Negative) Urine Leukocyte Esterase Trace /uL (Negative) Urine RBC 65 /hpf (0 - 4) Urine Microscopic WBC 6 /HPF (0-5) Urine Squamous Epithelial Cells Few /hpf (<5) Urine Bacteria Few /hpf (None Seen) Urine Glucose 4+ mg/dL (Normal) Other Laboratory Tests 09/27/24 06:38 Brief Hx & Hospital Course: see dictated note Condition at Discharge: Good Final Diagnosis/Problems List diabetes Discharge Disposition: Home Discharge Instruct/Medications Diet: Cardiac 2g Na,low cholest Activity: No Restrictions, As Tolerated Follow Up/Referral: fu with pcp in 1 wk Medications: script to pharmacy Discharge Statement: "Patient was advised to return to the ER or call 911 if any headaches, dizziness, shortness of breath, chest pain, abdominal pain, bleeding, fevers, or worsening of medical condition. Patient was counseled about treatment plan, medications, possible side effects, patientverbalized understanding. All questions were answered to the best of my ability. This discharge took greater then 30 minutes in planning, reviewing documentation, counseling the patient, and discussing with other team members." ASSESSMENT ASSESSMENT Assessment diabetes Date of Service: Sep 27, 2024 Billing Provider: PHILIP NULL MD Common Visit Codes: [id number] DISCH DAY >30min PHILIP NULL MD Sep 27, 2024 11:11
[2024-09-27] MEDS ORDERED: INSU1INJ19 SC (11:12)
[2024-09-27] MEDS ORDERED: METF-370 PO (11:12)
--- NOTE | 2024-09-27 11:22 | DVHDS ---
HISTORY OF PRESENT ILLNESS: The patient is a 38-year-old lady who came with complaints of left-sided pelvic and groin pain. HOSPITAL COURSE: The patient had a CT of abdomen and pelvis that showed evidence of tubular structure in the left adnexa with what appeared to be multiple ovarian cysts. The patient had a pelvic ultrasound that showed enlarged left ovary. She was seen in CHILD NUTRITION ASSISTANT consult by Dr. Ramos and was recommended to follow up with her in the clinic. The patient was also noted to have diabetes mellitus, which was new onset. Her hemoglobin A1c was 10.8. Her beta hCG was negative. The patient will now be discharged to be on metformin 500 mg b.i.d., Basaglar 20 units at bedtime and she will be given a glucometer with glucose strips and lancets. The patient will be set up with a primary care in discharge clinic. She will also be set up for diabetic education. FINAL DIAGNOSES: * Left-sided ovarian cyst with abdominal pain. * New-onset diabetes mellitus, likely type 2. Time spent in discharge planning and review of plan with the patient and nursing was 39 minutes. MD KOLE Saucedo/MELISSA TID: [id number] RECEIPT: [id number]
[2024-09-27 12:02] VITALS: BP 118/81; PULSE 76; RESP 16; TEMP 97.4; O2SAT 99
== END 2024-09-27 12:57 | disposition home or self-care (01) | DRG 532 ==
LOC: ER 12:57 → OVERFLOW 19:31 → WEST WING 23:18
PROVIDERS: ADMIT Internal Medicine; ATTEND Internal Medicine
DX: N83.292 Other ovarian cyst, left side (principal); N70.11 Chronic salpingitis; E11.9 Type 2 diabetes mellitus without complications; Z79.84 Long term (current) use of oral hypoglycemic drugs; Z90.49 Acquired absence of other specified parts of digestive tract
CPT/HCPCS: 36415; 74177; 76830; 76856; 80048; 81001; 82962; 83036; 83605; 83690; 83735; 84702; 85025; 96365; 96375; G0378; J1815; J2405